=== PATIENT | male | born 1940 | race Caucasian/White ===

== ENCOUNTER 2022-03-13 11:16 | Inpatient (IN) | payer OTHER, MEDICARE ==
[2022-03-13] MEDS ORDERED: Ondansetron PF 4 MG/2 ML Vial IVP PRN (11:26)
[2022-03-13] MEDS ORDERED: hydrALAZINE 20 MG/ML VIAL SLOW IVP PRN (11:26)
[2022-03-13] MEDS ORDERED: Morphine 2 MG/ML VIAL SLOW IVP PRN (11:26)
[2022-03-13] MEDS ORDERED: Ipratropium/Albuterol 3 ML NEB NEB PRN (11:26)
[2022-03-13] MEDS ORDERED: Acetaminophen 325 MG TAB PO SCH (11:30)
[2022-03-13] MEDS ORDERED: CEFAZOLIN 2 GM VIAL ONE ×2 (12:36→20:08)
[2022-03-13] MEDS ORDERED: Sodium Chloride 0.9% 100 ML ONE (12:36)
[2022-03-13] MEDS ORDERED: fentaNYL PF 100 MCG/2 ML SYRINGE ONE (12:41)
[2022-03-13] MEDS ORDERED: Dexamethasone 20 MG/5 ML VIAL ONE (12:49)
[2022-03-13] MEDS ORDERED: PHENYLEPHRINE-NS 100 MCG/ML 10 ML SYRINGE ONE (12:49)
[2022-03-13] MEDS ORDERED: PROPOFOL 200 MG/20 ML VIAL ONE (12:49)
[2022-03-13] MEDS ORDERED: Ondansetron PF 4 MG/2 ML Vial ONE (12:49)
[2022-03-13] MEDS ORDERED: Lidocaine 1% PF 5 ML VIAL ONE (12:49)
[2022-03-13] MEDS ORDERED: HYDROmorphone 0.5 MG/0.5 ML SYRINGE ONE (13:50)
[2022-03-13 17:31] VITALS: BMI 24.7
[2022-03-13] MEDS: Sodium Chloride 0.9% 1,000 ML IV SCH ×2 (17:50→19:50)
[2022-03-13] MEDS: Acetaminophen 325 MG TAB PO SCH (18:00)
[2022-03-13] MEDS: Acetaminophen/Codeine 30-300mg Tablet PO SCH (18:00)
[2022-03-13] MEDS ORDERED: Ibuprofen 200 MG TAB ONE (20:09)
[2022-03-13] MEDS ORDERED: Famotidine/PF 20 mg/2ml Vial ONE (20:09)
[2022-03-13] MEDS ORDERED: Senokot S 8.6-50 MG TAB ONE (20:10)
[2022-03-13] MEDS: CEFAZOLIN 2 GM in Sodium Chloride 0.9% 100 ML IVPB SCH (21:02)
[2022-03-13] MEDS: Ibuprofen 200 MG TAB PO SCH (21:03)
[2022-03-13] MEDS: Senokot S 8.6-50 MG TAB PO SCH (21:03)
[2022-03-13] MEDS: Famotidine/PF 20 mg/2ml Vial SLOW IVP SCH (21:04)
[2022-03-14] MEDS: Acetaminophen/Codeine 30-300mg Tablet PO SCH ×4 (00:56→18:38)
[2022-03-14] MEDS: Acetaminophen 325 MG TAB PO SCH ×4 (00:56→18:19)
[2022-03-14] MEDS: Ibuprofen 200 MG TAB PO SCH ×2 (05:25→15:27)
[2022-03-14] MEDS: CEFAZOLIN 2 GM in Sodium Chloride 0.9% 100 ML IVPB SCH (05:26)
[2022-03-14] MEDS: Sodium Chloride 0.9% 1,000 ML IV SCH ×2 (06:00→14:56)
[2022-03-14 07:43] LABS: Hemoglobin 9.2 g/dL (14.0-18.0); Mean Corpuscular HGB CONC 32.3 g/dL (32.0-36.0); Mean Platelet Volume 8.1 fL (7.4-10.4); Platelet Count 154 10x3/uL (130-400); RBC Distribution Width 12.1 % (11.5-14.5); Red Blood Cell (RBC) Count 2.78 mill/uL (4.70-6.10); White Blood Cell (WBC) Count 9.3 10x3/uL (4.8-10.8)
[2022-03-14 07:45] LABS: INR-International Normal Ratio 1.2; Prothrombin Time 15.2 sec (12.0-14.7)
[2022-03-14 07:52] LABS: Anion Gap 9 mmol/L (10-20); BUN (Urea Nitrogen) 20 mg/dL (8.4-25.7); Calc. Creatinine Clearance 51 mL/min (70-130); Calcium 7.8 mg/dL (7.8-10.44); Carbon Dioxide 23 mmol/L (23-31); Chloride 109 mmol/L (98-107); Estimated GFR 72; Glucose 109 mg/dL (83-110); Potassium 4.2 mmol/L (3.5-5.1); Sodium 137 mmol/L (136-145)
[2022-03-14] MEDS ORDERED: TETANUS, DIPHTHERIA TOX,ADULT (TDVAX) 0.5 ML VIAL IM ONE (09:00)
[2022-03-14] MEDS: Famotidine/PF 20 mg/2ml Vial SLOW IVP SCH ×2 (09:12→21:43)
[2022-03-14] MEDS: Senokot S 8.6-50 MG TAB PO SCH ×2 (09:12→21:43)
[2022-03-14] MEDS: Aspirin 81 mg Enteric Coated Tablet PO SCH ×2 (09:13→21:43)
[2022-03-14] MEDS: Polyethylene Glycol 3350 17 GM Packet PO SCH (09:13)
[2022-03-14 09:47] LABS: Band 12 % (5-11); Lymphocytes 14 % (21-51); MDiff Complete? YES; Monocytes 11 % (0-10); Neutrophil 63 % (42-75); Platelet Morphology Comment Appears Adequate; Polychromasia SLIGHT = 2-3 cells (100X) (0-2/hpf)
[2022-03-14] MEDS: Ascorbic Acid 500 mg Chewable Tablet PO SCH (21:43)
[2022-03-15] MEDS: Acetaminophen/Codeine 30-300mg Tablet PO SCH ×4 (00:38→18:12)
[2022-03-15] MEDS: Acetaminophen 325 MG TAB PO SCH ×4 (00:38→18:11)
[2022-03-15] MEDS: Senokot S 8.6-50 MG TAB PO SCH ×2 (10:17→21:01)
[2022-03-15] MEDS: Ascorbic Acid 500 mg Chewable Tablet PO SCH ×2 (10:17→21:01)
[2022-03-15] MEDS: Ferrous Sulfate 325 MG TAB PO SCH ×2 (10:17→18:11)
[2022-03-15] MEDS: Aspirin 81 mg Enteric Coated Tablet PO SCH (10:18)
[2022-03-15] MEDS: Polyethylene Glycol 3350 17 GM Packet PO SCH (10:18)
[2022-03-15] MEDS: Famotidine/PF 20 mg/2ml Vial SLOW IVP SCH ×2 (10:18→21:01)
[2022-03-15] MEDS ORDERED: Ibuprofen 200 MG TAB PO PRN (10:20)
[2022-03-16] MEDS: Acetaminophen 325 MG TAB PO SCH ×5 (00:12→23:51)
[2022-03-16] MEDS: Acetaminophen/Codeine 30-300mg Tablet PO SCH ×5 (00:13→23:51)
[2022-03-16] MEDS: Famotidine 20 MG TAB PO SCH ×2 (09:22→19:59)
[2022-03-16] MEDS: Ascorbic Acid 500 mg Chewable Tablet PO SCH ×2 (09:24→19:59)
[2022-03-16] MEDS: Polyethylene Glycol 3350 17 GM Packet PO SCH (09:24)
[2022-03-16] MEDS: Ferrous Sulfate 325 MG TAB PO SCH ×2 (09:24→18:16)
[2022-03-16] MEDS: Senokot S 8.6-50 MG TAB PO SCH ×2 (09:24→20:00)
[2022-03-17] MEDS: Acetaminophen 325 MG TAB PO SCH ×2 (05:42→12:10)
[2022-03-17] MEDS: Acetaminophen/Codeine 30-300mg Tablet PO SCH ×2 (05:43→12:11)
[2022-03-17 06:35] LABS: Hemoglobin 7.7 g/dL (14.0-18.0)
[2022-03-17] MEDS ORDERED: Ferrous Sulfate 325 MG TAB PO SCH (08:00)
[2022-03-17] MEDS ORDERED: Ascorbic Acid 500 mg Chewable Tablet PO SCH (09:00)
[2022-03-17] MEDS: Senokot S 8.6-50 MG TAB PO SCH (09:59)
[2022-03-17] MEDS: Polyethylene Glycol 3350 17 GM Packet PO SCH (10:00)
[2022-03-17] MEDS: Famotidine 20 MG TAB PO SCH (10:00)
[2022-03-17 13:28] VITALS: BP 104/63; TEMP 99.1
== END 2022-03-17 17:30 | disposition home health service (06) | DRG 481 ==
LOC: SUATTDRO 11:16 → SDC 11:16 → SURG A 16:43
PROVIDERS: ADMIT Surgery; ATTEND Surgery
PROC: 0QS706Z Reposition Left Upper Femur with Intramedullary Internal Fixation Device, Open Approach (ICD-10-PCS; principal; 2022-03-13)
DX: S72.142A Displaced intertrochanteric fracture of left femur, initial encounter for closed fracture (principal); D62 Acute posthemorrhagic anemia; Z20.822 Contact with and (suspected) exposure to COVID-19; W01.0XXA Fall on same level from slipping, tripping and stumbling without subsequent striking against object, initial encounter; Y93.89 Activity, other specified; Y92.513 Shop (commercial) as the place of occurrence of the external cause; Z90.89 Acquired absence of other organs; Z90.49 Acquired absence of other specified parts of digestive tract
CPT/HCPCS: 36415; 80048; 85014; 85018; 85025; 85610; 85730; C1713; J1100; J1170; J1650; J2405; J2704; J3490; J7050; P9045; S0028

== ENCOUNTER 2022-05-02 10:59 | Observation (INO) | payer MEDICARE ==
[2022-05-01 09:20] VITALS: BMI 23.3
[2022-05-02] MEDS ORDERED: fentaNYL PF 100 MCG/2 ML SYRINGE ONE (11:52)
[2022-05-02] MEDS ORDERED: CEFAZOLIN 2 GM VIAL ONE (12:07)
[2022-05-02] MEDS ORDERED: Sodium Chloride 0.9% 100 ML ONE (12:07)
[2022-05-02] MEDS ORDERED: Lidocaine 1% PF 5 ML VIAL ONE (12:19)
[2022-05-02] MEDS ORDERED: Ondansetron PF 4 MG/2 ML Vial ONE (12:19)
[2022-05-02] MEDS ORDERED: PROPOFOL 200 MG/20 ML VIAL ONE (12:19)
[2022-05-02] MEDS ORDERED: Dexamethasone 20 MG/5 ML VIAL ONE (12:19)
[2022-05-02] MEDS ORDERED: PHENYLEPHRINE-NS 100 MCG/ML 10 ML SYRINGE ONE (12:19)
[2022-05-02 13:00] LABS: #Eosinphils 0.1 thou/uL (0.0-0.7); #Lymphocytes 1.3 thou/uL (1.20-3.40); #Monocytes 0.6 thou/uL (0.11-0.59); #Neutrophils 3.9 thou/uL (1.40-6.50); %Basophils 0.4 % (0.0-1.0); %Eosinophils 1.1 % (0.0-10.0); %Lymphocytes 21.7 % (21.0-51.0); %Monocytes 10.3 % (0.0-10.0); %Neutrophils 66.6 % (42.0-75.0); Hemoglobin 10.9 g/dL (14.0-18.0); Mean Corpuscular HGB CONC 33.8 g/dL (32.0-36.0); Mean Corpuscular Hemoglobin 34.3 pg (27.0-31.0); Mean Platelet Volume 7.3 fL (7.4-10.4); Platelet Count 252 10x3/uL (130-400); RBC Distribution Width 12.9 % (11.5-14.5); Red Blood Cell (RBC) Count 3.17 mill/uL (4.70-6.10); White Blood Cell (WBC) Count 5.8 10x3/uL (4.8-10.8)
[2022-05-02 13:05] LABS: INR-International Normal Ratio 1.1; PTT 30.3 sec (22.9-36.1); Prothrombin Time 14.4 sec (12.0-14.7)
[2022-05-02 13:29] LABS: Anion Gap 11 mmol/L (10-20); BUN (Urea Nitrogen) 28 mg/dL (8.4-25.7); Calc. Creatinine Clearance 46 mL/min (70-130); Calcium 8.9 mg/dL (7.8-10.44); Carbon Dioxide 23 mmol/L (23-31); Chloride 109 mmol/L (98-107); Estimated GFR 64; Glucose 86 mg/dL (83-110); Potassium 4.2 mmol/L (3.5-5.1); Sodium 139 mmol/L (136-145)
[2022-05-02] MEDS ORDERED: Acetaminophen 325 MG TAB PO PRN (13:50)
[2022-05-02] MEDS ORDERED: Ondansetron PF 4 MG/2 ML Vial IVP PRN (13:50)
[2022-05-02] MEDS ORDERED: HYDROcodone/Acetaminophen 5/325 mg Tablet PO PRN (13:50)
[2022-05-02] MEDS ORDERED: traMADol HCl 50 MG TAB PO PRN (13:50)
[2022-05-02] MEDS ORDERED: Milk Of Magnesia 30 ML UDCUP PO PRN (13:50)
[2022-05-02] MEDS ORDERED: Fentanyl 100 MCG/2 ML VIAL SLOW IVP PRN (13:50)
[2022-05-02] MEDS ORDERED: Fentanyl 100 MCG/2 ML VIAL ONE (13:56)
[2022-05-02] MEDS ORDERED: Communication Order-Pharmacy FS SCH (14:00)
[2022-05-02 16:41] LABS: SARS-CoV-2 NAA Rapid Test Not Detected (NotDetected)
[2022-05-02] MEDS: Ferrous Sulfate 325 MG TAB PO SCH (18:20)
[2022-05-02] MEDS: Acetaminophen 325 MG TAB PO SCH (18:20)
[2022-05-02] MEDS: CEFAZOLIN 2 GM in Sodium Chloride 0.9% 100 ML IVPB SCH (20:34)
[2022-05-02] MEDS: Ascorbic Acid 500 mg Chewable Tablet PO SCH (20:34)
[2022-05-02] MEDS: Aspirin 81 mg Enteric Coated Tablet PO SCH (20:34)
[2022-05-03] MEDS: Acetaminophen 325 MG TAB PO SCH ×3 (00:28→12:04)
[2022-05-03] MEDS: CEFAZOLIN 2 GM in Sodium Chloride 0.9% 100 ML IVPB SCH (03:37)
[2022-05-03 06:01] LABS: #Lymphocytes 0.9 thou/uL (1.20-3.40); #Monocytes 1.3 thou/uL (0.11-0.59); #Neutrophils 10.2 thou/uL (1.40-6.50); %Basophils 0.2 % (0.0-1.0); %Eosinophils 0.1 % (0.0-10.0); %Lymphocytes 7.4 % (21.0-51.0); %Monocytes 10.5 % (0.0-10.0); %Neutrophils 81.8 % (42.0-75.0); Hemoglobin 9.8 g/dL (14.0-18.0); Mean Corpuscular HGB CONC 32.2 g/dL (32.0-36.0); Mean Corpuscular Hemoglobin 32.9 pg (27.0-31.0); Mean Platelet Volume 7.2 fL (7.4-10.4); Platelet Count 230 10x3/uL (130-400); RBC Distribution Width 12.7 % (11.5-14.5); Red Blood Cell (RBC) Count 2.96 mill/uL (4.70-6.10); White Blood Cell (WBC) Count 12.5 10x3/uL (4.8-10.8)
[2022-05-03 08:11] VITALS: TEMP 98.2
[2022-05-03] MEDS ORDERED: Cholecalciferol 1,000 UNITS (25 MCG) TAB PO SCH (09:00)
[2022-05-03] MEDS: Aspirin 81 mg Enteric Coated Tablet PO SCH (09:27)
[2022-05-03] MEDS: Ferrous Sulfate 325 MG TAB PO SCH (09:27)
[2022-05-03] MEDS: Ascorbic Acid 500 mg Chewable Tablet PO SCH (09:28)
[2022-05-03 15:00] VITALS: BP 111/59
== END 2022-05-03 16:10 | disposition home or self-care (01) ==
LOC: SDC 10:59 → SJJU 17:34
PROVIDERS: ADMIT Orthopaedic Surgery; ATTEND Orthopaedic Surgery
PROC: 0QH704Z Insertion of Internal Fixation Device into Left Upper Femur, Open Approach (ICD-10-PCS; principal; 2022-05-02)
DX: T84.115A Breakdown (mechanical) of internal fixation device of left femur, initial encounter (principal); S72.145D Nondisplaced intertrochanteric fracture of left femur, subsequent encounter for closed fracture with routine healing; Z79.82 Long term (current) use of aspirin; Z79.899 Other long term (current) drug therapy; Z20.822 Contact with and (suspected) exposure to COVID-19; W19.XXXD Unspecified fall, subsequent encounter; Y79.3 Surgical instruments, materials and orthopedic devices (including sutures) associated with adverse incidents
CPT/HCPCS: 27244; 73502; 80048; 85025 ×2; 85610; 85730; 96365; 96366; 97116; C1713 ×4; G0378 ×2; U0002; 36415; J1100; J2405; J2704; J3010; J3490